=== PATIENT | male | born 1985 | race Caucasian/White ===

== ENCOUNTER 2017-04-17 16:05 | Emergency (ER) | payer SELFPAY ==
[~2017-04-17] VITALS: Ht 180.3 cm; Wt 69.4 kg
[~2017-04-17 16:05] MED LIST: ALPR1TAB2 PO; BREX0.25 PO; FLUO20CA42 PO; HYDR-2890 PO; MELO-195 PO; NAPR-243 PO
--- OUTSIDE RECORDS SUMMARY | 2017-04-17 16:11 | XMS REPORT ---
Author YAMILA Santoyo [facility] eClinicalWorks Address Unknown Phone Unavailable Care Team Providers Care Fur Stretcher Name Role Phone YAMILA GILLILAND CP Unavailable Allergies No Known Allergies Problems Problem Type Condition Code Onset Dates Condition Status Assessment Encounter for PPD test Z11.1 Active Medications No Known Medications Procedures Procedure Coding System Code Date TB INTRADERMAL TEST CPT-4 47251 Dec 21, 2014 Results No Known Results Summary Purpose eClinicalWorks Submission
--- OUTSIDE RECORDS SUMMARY | 2017-04-17 16:11 | XMS REPORT ---
Author Author BALDO JAMES [facility] Address [address] [place] [address] Care Team Providers Care Animal Pathology Teacher Name Role Phone BALDO JAMES Unavailable PROBLEMS Type Condition ICD9-CM Code [id number] Code Onset Dates Condition Status SNOMED Code Problem Anxiety state, unspecified F41.1 Active 894775894 Problem Severe episode of recurrent major depressive disorder, without psychotic features F33.2 Active 76233492 Problem Chronic fatigue R53.82 Active 84166426 Problem Alcohol dependence in remission F10.21 Active 625412246 Problem Panic disorder [episodic paroxysmal anxiety] without agoraphobia F41.0 Active 35495491 ALLERGIES Substance Reaction Event Type Date Status Augmentin Unknown Drug Allergy July, Active SOCIAL HISTORY Never Assessed PLAN OF CARE Activity Details Follow Up prn Reason: VITAL SIGNS Height 71 in 2016-08-02 Weight 158.8 lbs 2016-08-02 Temperature 98.1 degrees Fahrenheit 2016-08-02 Heart Rate 88 bpm 2016-08-02 Respiratory Rate 18 2016-08-02 BMI 22.15 kg/m2 2016-08-02 Blood pressure systolic 112 mmHg 2016-08-02 Blood pressure diastolic 80 mmHg 2016-08-02 MEDICATIONS Medication Instructions Dosage Frequency Start Date End Date Duration Status Alprazolam 1 MG Orally 3 times a day 1 tablet 8h Active Prozac 40 MG Orally Once a day 1 capsule in the morning 24h Active RESULTS Name Result Date Reference Range TSH 2016-08-02 TSH 0.597 0.450-4.500 CBC 2016-08-02 WBC 7.0 3.4-10.8 RBC 4.95 4.14-5.80 Hemoglobin 14.8 12.6-17.7 Hematocrit 44.9 37.5-51.0 MCV 91 79-97 MCH 29.9 26.6-33.0 MCHC 33.0 31.5-35.7 RDW 13.4 12.3-15.4 Platelets 262 150-379 Neutrophils 58 Lymphs 30 Monocytes 8 Eos 3 Basos 1 Neutrophils (Absolute) 4.0 1.4-7.0 Lymphs (Absolute) 2.1 0.7-3.1 Monocytes(Absolute) 0.6 0.1-0.9 Eos (Absolute) 0.2 0.0-0.4 Baso (Absolute) 0.0 0.0-0.2 Immature Granulocytes 0 Immature Grans (Abs) 0.0 0.0-0.1 CMP 2016-08-02 Glucose, Serum 72 65-99 BUN 20 6-20 Creatinine, Serum 1.00 0.76-1.27 eGFR If NonAfricn Am 100 >59 eGFR If Africn Am 115 >59 BUN/Creatinine Ratio 20 9-20 Sodium, Serum 145 134-144 Potassium, Serum 4.3 3.5-5.2 Chloride, Serum 103 96-106 Carbon Dioxide, Total 23 18-29 Calcium, Serum 9.8 8.7-10.2 Protein, Total, Serum 6.6 6.0-8.5 Albumin, Serum 4.5 3.5-5.5 Globulin, Total 2.1 1.5-4.5 A/G Ratio 2.1 1.2-2.2 Bilirubin, Total 1.4 0.0-1.2 Alkaline Phosphatase, S 63 39-117 AST (SGOT) 31 0-40 ALT (SGPT) 16 0-44 HIV (STATE) 2016-08-02 HEP C ANTIBODY (STATE) 2016-08-02 RESULTS negative PROCEDURES Procedure Date Ordered Result Body Site COMPLETE CBC W/AUTO DIFF WBC August 02, 2016 COMPREHEN METABOLIC PANEL August 02, 2016 ASSAY THYROID STIM HORMONE August 02, 2016 VENIPUNCT, ROUTINE* August 02, 2016 IMMUNIZATIONS No Known Immunizations MEDICAL (GENERAL) HISTORY Type Description Date Medical History anxiety Medical History depression Medical History Major Depressive Disorder recurrent severe without psychosis Medical History Panic Disorder with agoraphobia Medical History Chronic Pain Medical History Back Injury
--- OUTSIDE RECORDS SUMMARY | 2017-04-17 16:12 | XMS REPORT ---
Author Author BALDO JAMES Organization [facility] Address [address] [place] [address] Care Team Providers Care Tape Edge Machine Operator Name Role Phone BALDO JAMES Unavailable PROBLEMS Type Condition ICD9-CM Code FQO45-HQ Code Onset Dates Condition Status SNOMED Code Problem Anxiety F41.9 Active 54899609 Assessment Anxiety F41.9 Nov, Active 47521490 ALLERGIES Substance Reaction Event Type Date Status Augmentin Unknown Drug Allergy Nov, Active SOCIAL HISTORY No smoking Hx information available PLAN OF CARE VITAL SIGNS Height 71 in 2015-11-29 Weight 157.4 lbs 2015-11-29 Heart Rate 88 bpm 2015-11-29 Respiratory Rate 18 2015-11-29 BMI 21.95 kg/m2 2015-11-29 Blood pressure systolic 128 mmHg 2015-11-29 Blood pressure diastolic 80 mmHg 2015-11-29 MEDICATIONS Medication Instructions Dosage Frequency Start Date End Date Duration Status Vistaril 50 mg Orally every 8 hours, PRN 1 capsule as needed Active Klonopin 1 MG Orally Twice a day 1 tablet 12h 20 Nov, 2015 Active Remeron 45 MG Orally Once a day 1 tablet before bedtime in the evening 24h Active Prozac 40 MG Orally Once a day 1 capsule in the morning 24h Active RESULTS No Results PROCEDURES Procedure Date Ordered Related Diagnosis Body Site Office Visit, Est Pt., Level 2 Nov 29, 2015 IMMUNIZATIONS No Known Immunizations
--- OUTSIDE RECORDS SUMMARY | 2017-04-17 16:12 | XMS REPORT ---
Author BALDO Garg [facility] eClinicalWorks Address Unknown Phone Unavailable Care Team Providers Care Automatic Quilling Machine Operator Name Role Phone BALDO JAMES CP Unavailable Allergies, Adverse Reactions, Alerts Substance Reaction Event Type Augmentin Info Not Available Drug Allergy Problems Problem Type Condition Code Onset Dates Condition Status Assessment Anxiety F41.9 Active Problem Anxiety F41.9 Active Medications Medication Code System Code Instructions Start Date End Date Status Dosage Prozac [facility] [address]-78 40 MG Orally Once a day 1 capsule in the morning Vistaril [facility] [address]-22 50 mg Orally twice a day, prn anxiety 1 capsule as needed Remeron [facility] [address]-81 45 MG Orally Once a day 1 tablet before bedtime in the evening Klonopin [facility] [address]-25 1 MG Orally Twice a day Nov 29, 2015 1 tablet Procedures Procedure Coding System Code Date Office Visit, Est Pt., Level 3 CPT-4 11294 Dec 27, 2015 Vital Signs Date/Time: Dec 27, 2015 Cardiac Monitoring Heart Rate 96 bpm Weight 164.8 lbs Height 71 in BMI 22.98 Index Blood Pressure Diastolic 76 mmHg Blood Pressure Systolic 125 mmHg Results No Known Results Summary Purpose eClinicalWorks Submission
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
--- NOTE | 2017-04-17 17:12 | ED Back Pain ---
General Chief Complaint: Back Problems Stated Complaint: INJ BACK Nursing Triage Note: AMB TO ROOM REPORTS HAS BEEN MOVING THINGS HAS HAD BACK PAIN SINCE. Nursing Sepsis Screen: No Definite Risk Source of Information: Patient Exam Limitations: No Limitations History of Present Illness Date Seen by Provider: Apr 17, 2017 Time Seen by Provider: 17:07 Initial Comments To ER with reports of mid low back pain that does not radiate. This began yesterday. He was moving a TV per his mother and believes that that may have caused this pain though he did not recall any particular pain at the time. He does have a history of some low back pain and was formerly on hydrocodone for that. He has not been on hydrocodone and several months. He reports that he did feel the need to abuse hydrocodone while he was on it due to some life stressors that he had at that time. Location: Lumbar Spine, Paraspinous Muscles Timing/Duration: 1-2 Days Severity: Moderate Associated Symptoms: lower back pain Allergies and Home Medications Allergies Coded Allergies: amoxicillin (Unverified Allergy, Unknown, 06/02/14) clavulanic acid (Unverified Allergy, Unknown, 06/02/14) Home Medications Alprazolam 1 Mg Tablet, 1 MG PO TID, (Reported) Brexpiprazole 0.25 Mg Tablet, Unknown Dose PO DAILY, (Reported) Fluoxetine HCl 20 Mg Capsule, Unknown Dose PO DAILY, (Reported) Hydrocodone Bit/Acetaminophen 1 Each Tablet, 1 EACH PO Q4H PRN for PAIN, ( Reported) Constitutional: see HPI EENTM: see HPI Respiratory: no symptoms reported Cardiovascular: no symptoms reported Genitourinary: no symptoms reported Musculoskeletal: see HPI, back pain Skin: no symptoms reported Past Bmmtemy-Kxdlec-Yrnzsy Hx Patient Social History Alcohol Use: Occasionally Uses Recreational Drug Use: Yes (PAST USE OF ) Smoking Status: Current Everyday Smoker Recent Foreign Travel: No Contact w/Someone Who Travel: No Recent Infectious Disease Expo: No Immunizations Up To Date Tetanus Booster (TDap): Less than 5yrs Seasonal Allergies Seasonal Allergies: No Surgeries History of Surgeries: No Respiratory History of Respiratory Disorde: Yes (CHILDHOOD) Respiratory Disorders: Asthma Cardiovascular History of Cardiac Disorders: No Neurological History of Neurological Disord: No Gastrointestinal History of Gastrointestinal Di: No Musculoskeletal History of Musculoskeletal Dis: No Endocrine History of Endocrine Disorders: No Cancer History of Cancer: No Psychosocial History of Psychiatric Problem: Yes (INSOMNIA) Behavioral Health Disorders: Anxiety Integumentary History of Skin or Integumenta: No Blood Transfusions History of Blood Disorders: No Family Medical History Significant Family History: No Pertinent Family Hx Physical Exam Vital Signs Vital Signs - First Documented 04/17/17 16:47 Temp 97.6 Pulse 96 Resp 18 B/P (MAP) 101/71 (81) Pulse Ox 98 Capillary Refill : Less Than 3 Seconds General Appearance: No Apparent Distress, WD/WN HEENT: PERRL/EOMI, TMs Normal Neck: Full Range of Motion, Normal Inspection Respiratory: No Accessory Muscle Use, No Respiratory Distress Gastrointestinal: Normal Bowel Sounds, Non Tender, Soft Back: Normal Inspection, Muscle Spasm Extremity: Normal Capillary Refill, Normal Inspection Neurologic/Psychiatric: Alert, Oriented x3, No Motor/Sensory Deficits, Normal Mood/Affect Skin: Normal Color, Warm/Dry Progress/Results/Core Measures Results/Orders Vital Signs/I&O Vital Sign - Last 12Hours 04/17/17 16:47 Temp 97.6 Pulse 96 Resp 18 B/P (MAP) 101/71 (81) Pulse Ox 98 Blood Pressure Mean: 81 Departure Impression Impression: Primary Impression: Back pain Disposition: 01 HOME, SELF-CARE Condition: Stable Departure-Patient Inst. Decision time for Depature: 17:09 Referrals: NO,LOCAL PHYSICIAN (PCP/Family) Primary Care Physician Patient Instructions: Low Back Pain (DC), Muscle Strain (DC) Add. Discharge Instructions: 1. Heat to back 2. Return to ER for any worsening symptoms such as pain radiating down the legs , loss of bowel or bladder control, loss of sensation of your genitals, anything else that concerns you. If his pain medication is insufficient, follow- up with your primary care doctor to discuss other treatment options for medications. All discharge instructions reviewed with patient and/or family. Voiced understanding. Scripts Naproxen (Naprosyn) 500 Mg Tablet 500 MG PO BID, #20 TAB Prov: JANNETTE KERR MASSOTHERAPIST 04/17/17 Cyclobenzaprine HCl (Cyclobenzaprine HCl) 5 Mg Tablet 10 MG PO BID Y for PAIN-MODERATE TO SEVERE, #30 TAB Prov: JANNETTE KERR APRN 04/17/17 JANNETTE KERR APRN Apr 17, 2017 17:12
[2017-04-17] MEDS ORDERED: CYCL5TAB PO (17:13)
[2017-04-17] MEDS ORDERED: NAPR-1071 PO (17:13)
[2017-04-17] MEDS ORDERED: HYDROcodone/APAP 5 MG/325 MG (LORTAB) TAB PO ONE (17:45)
[2017-04-17 17:51] VITALS: BP 101/71
== END 2017-04-17 17:49 | disposition home or self-care (01) ==
LOC: EDUNIT# 16:05 → ER 16:06
DX: M54.9 Dorsalgia, unspecified (principal); J45.909 Unspecified asthma, uncomplicated; F41.9 Anxiety disorder, unspecified; G47.00 Insomnia, unspecified; F17.200 Nicotine dependence, unspecified, uncomplicated; Z88.1 Allergy status to other antibiotic agents; Z88.8 Allergy status to other drugs, medicaments and biological substances
CPT/HCPCS: 99283

== ENCOUNTER 2021-05-28 10:52 | Emergency (ER) | payer SELFPAY ==
[~2021-05-28] VITALS: Ht 180.3 cm; Wt 68.0 kg
[~2021-05-28 10:52] MED LIST changes: +CYCL5TAB PO; +NAPR-1071 PO
[2021-05-28 10:57] VITALS: BP 132/85
[2021-05-28] MEDS ORDERED: NAPR-1071 PO (11:09)
[2021-05-28] MEDS ORDERED: METH-732 PO (11:09)
--- NOTE | 2021-05-28 11:10 | ED Back Pain ---
General Stated Complaint: BACK PAIN Source of Information: Patient Exam Limitations: No Limitations History of Present Illness Date Seen by Provider: May 28, 2021 Time Seen by Provider: 11:04 Initial Comments To ER by private vehicle with reports of midline upper lumbar/lower thoracic back pain that began yesterday while doing some yard work and raking. Pain does not radiate down his legs. No fever or chills no trauma no history of cancer no history of IV drug use no loss of bowel or bladder control no saddle anesthesia. Location: Lumbar Spine, Paraspinous Muscles Timing/Duration: 1-2 Days Severity: Moderate Pain/Injury Location: Back Method of Injury: Unknown Associated Symptoms: lower back pain Allergies and Home Medications Allergies Coded Allergies: amoxicillin (Unverified Allergy, Unknown, 06/02/14) clavulanic acid (Unverified Allergy, Unknown, 06/02/14) Patient Home Medication List Home Medication List Reviewed: Yes Alprazolam (Xanax) 1 Mg Tablet, 1 MG PO TID, (Reported) Entered as Reported by: JUAN PRESTON on 06/02/142116 Brexpiprazole (Rexulti) 0.25 Mg Tablet, Unknown Dose PO DAILY, (Reported) Entered as Reported by: ROBERTO CARRENO on 09/01/15 09 Cyclobenzaprine HCl (Cyclobenzaprine HCl) 5 Mg Tablet, 10 MG PO BID PRN for PAIN-MODERATE TO SEVERE Prescribed by: JANNETTE KERR on 04/17/171712 Fluoxetine HCl (Prozac) 20 Mg Capsule, Unknown Dose PO DAILY, (Reported) Entered as Reported by: ROBERTO CARRENO on 09/01/15 09 Hydrocodone Bit/Acetaminophen (Hydrocodon-Acetaminophn 10-325) 1 Each Tablet, 1 EACH PO Q4H PRN for PAIN, (Reported) Entered as Reported by: JUAN PRESTON on 06/02/142116 Naproxen (Naprosyn) 500 Mg Tablet, 500 MG PO BID Prescribed by: JANNETTE KERR on 04/17/171712 Review of Systems Constitutional: see HPI EENTM: see HPI Respiratory: no symptoms reported Cardiovascular: no symptoms reported Genitourinary: no symptoms reported Musculoskeletal: see HPI, back pain Skin: no symptoms reported Psychiatric/Neurological: No Symptoms Reported Past Xbksadz-Nvjpry-Evytse Hx Immunizations Up To Date Tetanus Booster (TDap): Less than 5yrs Seasonal Allergies Seasonal Allergies: No Past Medical History Surgeries: No Respiratory: Yes (CHILDHOOD) Asthma Cardiac: No Neurological: No Gastrointestinal: No Musculoskeletal: No Endocrine: No Cancer: No Psychosocial: Yes (INSOMNIA) Anxiety Integumentary: No Blood Disorders: No Family Medical History No Pertinent Family Hx Physical Exam Vital Signs Capillary Refill : Height, Weight, BMI Height: 5'11.00" Weight: 153lbs. oz. 69.075967wx; 23.00 BMI Method:Stated General Appearance: No Apparent Distress, WD/WN Neck: Full Range of Motion, Normal Inspection Respiratory: No Accessory Muscle Use, No Respiratory Distress Gastrointestinal: Normal Bowel Sounds, Non Tender, Soft Back: Other (He has a topical medicated adhesive patch on his back at the site of pain) Extremity: Normal Capillary Refill, Normal Inspection Neurologic/Psychiatric: Alert, Oriented x3 Skin: Normal Color, Warm/Dry Departure Impression Primary Impression: Acute low back pain Disposition: HOME, SELF-CARE Condition: Stable Departure-Patient Inst. Decision time for Depature: 11:05 Referrals: NO,LOCAL PHYSICIAN (PCP/Family) Primary Care Physician Patient Instructions: Low Back Pain (DC) Add. Discharge Instructions: 1. You could try warm or cold to the area, whichever helps more is fine to use. Medications have been sent into [facility] pharmacy. Return to ER for any worsening symptoms or other concerns. Scripts Methocarbamol (Methocarbamol) 750 Mg Tablet 750 MG PO Q6-8HR for Back Pain, #20 TAB Prov: JANNETTE KERR APRN 05/28/21 Naproxen (Naprosyn) 500 Mg Tablet 500 MG PO BID PRN for PAIN-MODERATE (5-7), #30 TAB 0 Refills Prov: JANNETTE KERR APRN 05/28/21 Work/School Note: Work Release Form Date Seen in the Emergency Department: May 28, 2021 Return to Work: May 30, 2021 JANNETTE KERR APRN May 28, 2021 11:10
== END 2021-05-28 11:17 | disposition home or self-care (01) ==
LOC: EDUNIT# 10:52 → ER 10:53
DX: M54.50 Low back pain, unspecified (principal); X58.XXXA Exposure to other specified factors, initial encounter; Y93.H1 Activity, digging, shoveling and raking
CPT/HCPCS: 99281

== ENCOUNTER 2021-10-22 14:54 | Emergency (ER) | payer SELFPAY ==
[~2021-10-22] VITALS: Ht 180 cm; Wt 63.0 kg
[~2021-10-22 14:54] MED LIST changes: +METH-732 PO
--- NOTE | 2021-10-22 16:02 | ED Integumentary General ---
General Chief Complaint: Skin/Wound Problems Stated Complaint: R ARM SCRAPED BY CAROL NAIL, SORE IN R NOSTRIL Nursing Triage Note: PT PRESENT TO ED FOR TREATMENT AFTER SCRATCHING RIGHT BICEP WITH CAROL NAIL YESTERDAY DAY. PER PT HIS ARM IS SORE. PUNCTURE ABOUT 2MM NOTED, SKIN INTACT. PT IS ALSO C/O ABOUT SORE IN RIGHT NOSTRIL, REPORTS IT HAS BEEN THERE FOR ABOUT TWO MONTHS. PT AMB. TO TRIAGE WITHOUT DIFFICULTY. PT IS ALERT AND ORIENTED. Source: patient Exam Limitations: no limitations History of Present Illness Date Seen by Provider: Oct 22, 2021 Time Seen by Provider: 15:53 Initial Comments Patient is a 35-year-old male who presents to the emergency department today with 2 complaints, 1 a small lesion just inside the right nostril that has been there for about 2 months. Patient states that it causes him a little discomfort but has not been red, swollen or draining. He has not put anything on it. He is also concerned about a small puncture to the medial right bicep that occurred yesterday from a carol nail. He complains of a little soreness to the area. No fevers or chills. He is requesting a tetanus shot. No other complaints of illness or injury. Severity: mild Associated Symptoms: denies symptoms Allergies and Home Medications Allergies Coded Allergies: amoxicillin (Unverified Allergy, Unknown, 06/02/14) clavulanic acid (Unverified Allergy, Unknown, 06/02/14) Patient Home Medication List Home Medication List Reviewed: Yes Alprazolam (Xanax) 1 Mg Tablet, 1 MG PO TID, (Reported) Entered as Reported by: JUAN PRESTON on 06/02/142116 Brexpiprazole (Rexulti) 0.25 Mg Tablet, Unknown Dose PO DAILY, (Reported) Entered as Reported by: ROBERTO CARRENO on 09/01/15 0908 Cyclobenzaprine HCl (Cyclobenzaprine HCl) 5 Mg Tablet, 10 MG PO BID PRN for PAIN-MODERATE TO SEVERE Prescribed by: JANNETTE KERR on 04/17/17 1713 Fluoxetine HCl (Prozac) 20 Mg Capsule, Unknown Dose PO DAILY, (Reported) Entered as Reported by: ROBERTO CARRENO on 09/01/15 0908 Hydrocodone Bit/Acetaminophen (Hydrocodon-Acetaminophn 10-325) 1 Each Tablet, 1 EACH PO Q4H PRN for PAIN, (Reported) Entered as Reported by: JUAN PRESTON on 06/02/142116 Methocarbamol (Methocarbamol) 750 Mg Tablet, 750 MG PO Q6-8HR Prescribed by: JANNETTE KERR on 05/28/21 110 Naproxen (Naprosyn) 500 Mg Tablet, 500 MG PO BID Prescribed by: JANNETTE KERR on 04/17/17 1713 Naproxen (Naprosyn) 500 Mg Tablet, 500 MG PO BID PRN for PAIN-MODERATE (5-7) Prescribed by: JANNETTE KERR on 05/28/21 1109 Review of Systems Review of Systems Constitutional: see HPI EENTM: other (Discomfort right nare) Respiratory: no symptoms reported Cardiovascular: no symptoms reported Gastrointestinal: no symptoms reported Genitourinary: no symptoms reported Musculoskeletal: muscle pain (Right bicep) Skin: other (Puncture wound right base) All Other Systems Reviewed Negative Unless Noted: Yes Past Ouvnfyd-Mtmjhs-Bkhlku Hx Patient Social History Tobacco Use?: Yes Tobacco type used: Cigarettes Smoking Status: Current Everyday Smoker Use of E-Cig and/or Vaping dev: No Substance use?: No Substance type: Amphetamines, Methamphetamine, Barbiturates, Hallucinogens, Inhalants, Opiates/Opioids, Marijuana Additional substance use comme: LAST USED ABOUT 4 MONTHS Alcohol Use?: Yes Alcohol type: Beer Alcohol Frequency: Rarely Pt feels they are or have been: No Immunizations Up To Date Tetanus Booster (TDap): Less than 5yrs Seasonal Allergies Seasonal Allergies: No Past Medical History Surgery/Hospitalization HX: DENIES PMH AND SURGERY. Surgeries: No Respiratory: Yes (CHILDHOOD) Asthma Cardiac: No Neurological: No Gastrointestinal: No Musculoskeletal: No Endocrine: No Cancer: No Psychosocial: Yes (INSOMNIA) Anxiety Integumentary: No Blood Disorders: No Family Medical History No Pertinent Family Hx Physical Exam Vital Signs Vital Signs - First Documented 10/22/21 15:27 Temp 36.0 Pulse 99 Resp 16 B/P (MAP) 124/85 (98) Pulse Ox 99 O2 Delivery Room Air Capillary Refill : Less Than 3 Seconds General Appearance: WD/WN, no apparent distress HEENT: PERRL/EOMI, TMs normal, pharynx normal, other (Small lesion inferior portion of right nare, 2 mm. No pustule was noted no surrounding erythema or swelling. Minimally tender) Neck: normal inspection Respiratory: no respiratory distress, no accessory muscle use Extremities: normal range of motion, non-tender, normal inspection, no pedal edema, no calf tenderness Neurologic/Psychiatric: alert, normal mood/affect, oriented x 3 Skin: normal color, warm/dry, other (Small healing puncture wound noted to the mid right bicep. Scant surrounding erythema. No fluctuance or induration. No lymphangitic streaking.) Progress/Results/Core Measures Results/Orders My Orders Orders - JADA TRAYLOR MD Dipht,Pertuss(Acell),Tet Adult (Boostrix (10/22/21 16:15) Vital Signs/I&O 10/22/21 15:27 Temp 36.0 Pulse 99 Resp 16 B/P (MAP) 124/85 (98) Pulse Ox 99 O2 Delivery Room Air Blood Pressure Mean: 98 Departure Impression Primary Impression: Puncture wound of upper arm Qualified Codes: S41.131A - Puncture wound without foreign body of right upper arm, initial encounter Additional Impression: ulcer right nare Disposition: HOME, SELF-CARE Condition: Stable Departure-Patient Inst. Decision time for Depature: 16:01 Referrals: [facility] NO,LOCAL PHYSICIAN (PCP) Primary Care Physician Patient Instructions: Wound Care (DC) Add. Discharge Instructions: Keep the area in your right nostril nice and clean and washing her face, use soap and water twice daily. Apply a little triple antibiotic ointment over the sore area twice daily for a week. Wash the puncture wound to your right bicep area twice daily with a good antiseptic soap. Monitor the area for increasing redness, swelling and pain. It would be appropriate to apply a little triple antibiotic ointment to this area as well twice daily for a week. Drink plenty of fluids to stay well-hydrated. Bxuo-izj-kpdfhys ibuprofen, 3 tablets every 6 hours which is 600 mg, with food as needed for pain. Follow-up with a primary care physician for general health maintenance. JADA TRAYLOR MD Oct 22, 2021 16:02
[2021-10-22] MEDS ORDERED: TETANUS,DIPTH,PERTUSS P/F (BOOSTRIX) 0.5 ML VIAL IM ONE (16:15)
[2021-10-22 16:34] VITALS: BP 124/85
== END 2021-10-22 16:11 | disposition home or self-care (01) ==
LOC: EDUNIT# 14:54 → ER 14:57
DX: S41.131A Puncture wound without foreign body of right upper arm, initial encounter (principal); J34.0 Abscess, furuncle and carbuncle of nose; F17.210 Nicotine dependence, cigarettes, uncomplicated; Z23 Encounter for immunization; Z28.310 Unvaccinated for COVID-19; W45.0XXA Nail entering through skin, initial encounter
CPT/HCPCS: 90715; 99284

== ENCOUNTER 2022-02-06 19:54 | Emergency (ER) | payer SELFPAY ==
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
[2022-02-06] MEDS ORDERED: HYDROcodone/APAP 5 MG/325 MG (LORTAB) TAB PO ONE (20:30)
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
[2022-02-06] MEDS ORDERED: ACHD5005 PO (20:53)
[2022-02-06 21:04] VITALS: BP 129/88
== END 2022-02-06 21:04 | disposition home or self-care (01) ==
LOC: EDUNIT# 19:54 → ER 19:57
DX: S42.031A Displaced fracture of lateral end of right clavicle, initial encounter for closed fracture (principal); F17.210 Nicotine dependence, cigarettes, uncomplicated; Z28.310 Unvaccinated for COVID-19; Y04.8XXA Assault by other bodily force, initial encounter; Y92.008 Other place in unspecified non-institutional (private) residence as the place of occurrence of the external cause
CPT/HCPCS: 73000; 73030